=== PATIENT | female | born 1965 | race Caucasian/White ===

== ENCOUNTER → 2021-03-18 | Day surgery (SDC) | payer OTHER ==
[~2021-03-18] VITALS: Ht 160 cm; Wt 93.9 kg
[~2021-03-18] MED LIST: BUPROPION XL150 MG PO; DULOXETINE HCL60 MG PO; METOPROLOL SUCC50 MG PO; OXYCODONE HCL5 M1 PO; PREGABALIN100 MG PO
[2021-03-18 10:20] LABS: HEMOGLOBIN 12.7 gm/dl (12.3-15.3); RED BLOOD COUNT 4.64 M/UL (4.00-5.10); WHITE BLOOD COUNT 9.6 K/UL (4.5-11.0)
[2021-03-18 10:37] LABS: BUN/CREATININE RATIO 10 (0-10)
== END | disposition home or self-care (01) ==
LOC: OR 09:40
PROVIDERS: Orthopaedic Surgery
DX: S42.351A Displaced comminuted fracture of shaft of humerus, right arm, initial encounter for closed fracture (principal); M06.9 Rheumatoid arthritis, unspecified; I10 Essential (primary) hypertension; E78.5 Hyperlipidemia, unspecified; J44.9 Chronic obstructive pulmonary disease, unspecified; E66.01 Morbid (severe) obesity due to excess calories; F41.9 Anxiety disorder, unspecified; F32.9 Major depressive disorder, single episode, unspecified; Z79.891 Long term (current) use of opiate analgesic; Z79.899 Other long term (current) drug therapy; Z20.822 Contact with and (suspected) exposure to COVID-19; W01.0XXA Fall on same level from slipping, tripping and stumbling without subsequent striking against object, initial encounter
CPT/HCPCS: 36415; 73060; 76000; 80048; 85027; J0171; J0690; J1100; J2001; J2250; J2270; J2405; J2704; J2795; J7030; J7120; U0002